=== PATIENT | male | born 1930 | race Caucasian/White ===

== ENCOUNTER → 2018-06-11 | Outpatient (CLI) | payer OTHER ==
[~2018-06-11] MED LIST: AUGMENTIN 875875 MG PO; B12INJ PO; BAYER CHEWABLE81 MG PO; BRIMONIDINE TAR1 BO1 OP; CATAPRES0.2 MG PO; CENTRUM SILVER1 EAC4 PO; COSOPT EYE DROPS5 ML OP; COZAAR 50 MG TA50 M2 PO; GLUCOSAMINE HC500 MG PO; HYDROCODONE-APA1 TA1 PO; MELATONIN3 MG PO; PRESERVISION A1 EAC2 PO; TIMOLOL GL0.5 %/5 M1 OP; VITAMIN D350000 UNIT PO; XALATAN2.5 ML OPHTHALMIC
== END ==
LOC: M.ULTRA 15:22 → M.MRI 16:30
DX: I67.9 Cerebrovascular disease, unspecified (principal); G93.89 Other specified disorders of brain; G45.9 Transient cerebral ischemic attack, unspecified; G89.29 Other chronic pain